=== PATIENT | female | born 1960 | race Caucasian/White ===

== ENCOUNTER 2018-12-31 22:29 | Emergency (ER) | payer SELFPAY ==
--- NOTE | 2018-12-31 22:48 | ERPHSYRPT ---
- History of Present Illness Time Seen by Provider: 12/31/18 22:40 Source: patient, police Exam Limitations: other (patient refuses be examined refuses vitals) Patient Subjective Stated Complaint: Pt brought in for medical clearance after being stopped in traffic stop and suspected of OWI. Triage Nursing Assessment: [place]/warm/dry, resp easy, a&ox4, steady gait, pt hand cuffed behind her back, yelling at airframe technical officer and demanding her belongings. Pt refuses assement including vital signs by this nurse. Physician History: This is a 58-year-old white female brought by the police Patient brought in for possible driving under the influence. Patient arrives wearing a please swearing at the staff. She is oriented to herself she refuses vitals she refuses examination. She states that she wants to see a fire management technician. Patient appears to be oriented she is alert she does not appear to be in any distress. Severity: moderate Modifying Factors: Improves With: other (patient refuses examination or evaluation) Associated Symptoms: denies symptoms Allergies/Adverse Reactions: No Known Drug Allergies Allergy (Unverified 12/31/18 22:31) Home Medications: No Reportable Medications [No Reported Medications] 12/31/18 [History] - Review of Systems All Other Systems: Unable due to condition (patient refuses to answer questions ) - Past Medical History Pertinent Past Medical History: Yes ( patient refuses) - Past Surgical History Past Surgical History: Yes (patient refuses) - Social History Smoking Status: Unknown if ever smoked - Nursing Vital Signs Nursing Vital Signs: Pain Scale Pain Intensity 0 - Physical Exam General Appearance: other (well-developed white female alert oriented to herself refuses to answer any questions refuses examination patient appears to be angry and not in distress) Neurologic Exam: alert, oriented x 3, other (patient with no visible neurologic defects), No cooperative Skin Exam: normal color, warm, dry, No rash - Course Nursing assessment & vital signs reviewed: Yes - Progress Progress: improved Progress Note: 12/31/18 22:47 this is a 58-year-old white female she is brought by the police for suspected driving under the influence. Patient is swearing at the place she is swearing at staff she refuses vitals she refuses examination. Generally the patient does not appear to be in acute distress She is alert oriented to herself. She states she wants a fire management technician. I've offered to examine the patient she is refusing. 01/01/19 00:12 Police have obtained or for patient's blood and urine. Patient continues to refuse blood draw or examination. Will release to shelter, - Departure Departure Disposition: Correction/Assisted Clinical Impression: shelter clearance Condition: Fair Critical Care Time: No Referrals: Provider,Unknown [Primary Care Provider] - Additional Instructions: Released to shelter. You have refused examination and Laboratory data. No driving. Followup with shelter doctor. Return for acute distress or for severe symptoms.
== END 2019-01-01 00:34 | disposition home or self-care (01) ==
LOC: ED 22:29
DX: Z02.89 Encounter for other administrative examinations (principal)
CPT/HCPCS: 99283